=== PATIENT | female | born 1980 | race Caucasian/White ===

== ENCOUNTER 2018-04-01 19:29 | Observation (INO) ==
[2018-04-02 07:50] VITALS: BP 141/78; RESP 18; TEMP 97.8; O2SAT 95
--- NOTE | 2018-04-02 08:47 | P.HPCA ---
History of Present Illness Primary Care Physician: PCP Mimi Chief Complaint: Chest pain History of Present Illness: 38 year old female with history of type 2 diabetes, hypertension, and hyperlipidemia presents the emergency room for further evaluation of fatigue, nausea, dyspnea, and vague chest pain. Onset greater than 1 week. Location right anterior chest and substernal. Characterized as pressure, "as someone is pushing on my chest." Inspiration does not make discomfort worse. No particular movement or position makes pain better or worse except for laying on left side helps some. No radiation. Duration constant. Report poor appetite and after eating develops near immediate nausea. No vomiting or diarrhea. Report fever on 03/21 of 101 degrees which as not returned. No chills, cough, or injury. Denies similar chest discomfort in the past. Dyspnea constant as well, reports attempting to preform daily activities "ignoring the shortness of breath" but reports yesterday she became tired of feeling ill therefore came to ER. No polyuria or dysuria. Last menses end of February, denies chance of , history of tubal ligation and reports negative test completed in [facility]. Past cardiac testing None Social history Known type II diabetes (dx 2003), hypertension, and hyperlipidemia. Lifelong nonsmoker. No alcohol or recreational drug use. Works as cashier office. Reports remains active "all day" but does not have formal exercise regimen. Family history Noncontributory for early onset cardiovascular disease - Diagnosis (1) Atypical chest pain (2) Type 2 diabetes mellitus (3) Hypertension (4) Hyperlipidemia (5) Severe obesity (BMI >= 40) Review of Systems All other systems reviewed negative except as stated in HPI ON LICENSE OF [facility] - History History Provided By: Patient - Medical History Medical History: Medical History (Last Updated 04/02/18 @ 08:45 by MARIZA Cook) Asthma Carpal tunnel syndrome Gestational diabetes Hyperlipidemia Lumbar herniated disc Plantar fasciitis Severe obesity (BMI >= 40) Diabetes Hypertension - Surgical History Surgical History: Surgical History (Last Updated 04/02/18 @ 08:47 by MARIZA Cook) H/O section H/O tubal ligation History of carpal tunnel surgery of left wrist S/P cervical spinal fusion - Family History Family History: Family History (Last Updated 04/02/18 @ 09:12 by MARIZA Cook) Grandparent FH: CABG (coronary artery bypass surgery) Mother Leaky heart valve - Social History I have reviewed the patient's Social History: Yes - Tobacco History Second Hand Smoke Exposure: No Tobacco Use In Past 30 Days: No (4 years ago) Smoking Status: Never smoker - Alcohol History How Often Do You Have a Drink Containing Alcohol: Never - Substance Use History Substance History: No History of Abuse - Travel History Recent Travel in the [place] Within the Last 8 Weeks: No Recent Travel Out of the Country Within the Last 8 Weeks: No Medications and Allergies Active Medications: Active Medications Acetaminophen (Tylenol) 500 mg PO Q4H PRN PRN Reason: HEADACHE Ondansetron HCl (Zofran Inj) 4 mg IV.PUSH Q6H PRN PRN Reason: NAUSEA Sodium Chloride (Ns Flush) 2 ml IV.FLUSH BID TWAN Sodium Chloride (Ns Flush) 2 ml IV.FLUSH PRN PRN PRN Reason: FLUSH AFTER USING IV ACCESS Allergies Allergy/AdvReac Type Severity Reaction Status Date / Time ibuprofen Allergy Unknown swollen Verified 04/01/18 20:48 lips Home Medications Medication Instructions Recorded Confirmed Type albuterol sulfate 2 puff INHALATION Q4-6H PRN 04/01/18 04/02/18 History amlodipine 5 mg PO DAILY 04/01/18 04/02/18 History atorvastatin 80 mg PO QPM 04/01/18 04/02/18 History insulin degludec [Tresiba 15 unit SUBCUT DAILY 04/01/18 04/02/18 History FlexTouch U-100] losartan 100 mg PO DAILY 04/01/18 04/02/18 History metformin 1,000 mg PO BID 04/01/18 04/02/18 History sitagliptin [Januvia] 100 mg PO DAILY 04/01/18 04/02/18 History Exam Vital signs: Vital Signs 04/02/18 04:07 04/02/18 04:18 04/02/18 07:48 Temperature 97.6 F 97.8 F Pulse Rate 56 L 61 102 H Respiratory Rate 20 18 Blood Pressure 116/79 141/78 H Pulse Oximetry 98 95 Intake & Output 04/01/18 04/02/18 04/02/18 18:59 06:59 18:59 Weight 115.9 kg Other: Date of Last Bowel Movement 04/01/18 Weight On Admission 115.9 kg Narrative: GENERAL: Alert WN, WD, NAD, pleasant, morbidly obese, female HEAD: NC, AT EYES: Sclera clear, conjunctiva without injection, pupils equal and round ENT: Mucous membranes pink and moist NECK: Supple, no masses, trachea midline CV: RRR, without murmur, rub, gallop, no JVD, S1-S2 no S3-S4. No carotid bruits. Chest wall slight tender to palpation, chest pain not reproducible with palpation RESP: Clear lungs throughout bilateral, no crackles, wheeze, rhonchi, symmetrical chest rise, nonlabored, able to speak in full sentences ABD: Soft, NT, ND, no masses, positive bowel tones EXT: Pulses +2x4, no dependent edema MS: Normal tone x4 extremities, nontender, no obvious deformities, full range of motion NEURO: Motor strength 5/5, gait WNL PSYCH: A+O x3, pleasant affect, appropriate speech, mood, insight and judgment SKIN: Normal turgor, normal texture, no lesions, no rashes, even hair distribution, tattoos Results Intake and Output 04/01/18 04/02/18 04/02/18 22:59 06:59 14:59 Other: Date of Last Bowel Movement 04/01/18 Weight 115.9 kg Weight On Admission 115.9 kg EKG interpretations - EKG EKG results cardiology: sinus rhythm, normal axis, normal QRS (Lead III t wave inversion, AVF nonspecific t wave change) Caprini VTE Risk Assessment Caprini VTE Risk Assessment: No/Low Risk (score <= 1) Caprini Risk Assessment Model: Point Value = 1 Point Value = 2 Point Value = 3 Point Value = 5 Age 41-60 Minor surgery BMI > 25 kg/m2 Swollen legs Varicose veins or History of unexplained or recurrent spontaneous Oral contraceptives or hormone replacement Sepsis (< 1 month) Serious lung disease, including pneumonia (< 1 month) Abnormal pulmonary function Acute myocardial infarction Congestive heart failure (< 1 month) History of inflammatory bowel disease Medical patient at bed rest Age 61-74 Arthroscopic surgery Major open surgery (> 45 min) Laparoscopic surgery (> 45 min) Malignancy Confined to bed (> 72 hours) Immobilizing plaster cast Central venous access Age >= 75 History of VTE Family history of VTE Factor V Leiden Prothrombin 25152G Lupus anticoagulant Anticardiolipin antibodies Elevated serum homocysteine Heparin-induced thrombocytopenia Other congenital or acquired thrombophilia Stroke (< 1 month) Elective arthroplasty Hip, pelvis, or leg fracture Acute spinal cord injury (< 1 month) Prophylaxis Regimen: Total Risk Factor Score Risk Level Prophylaxis Regimen 0-1 Low Early ambulation 2 Moderate Order ONE of the following: *Sequential Compression Device (SCD) *Heparin 5000 units SQ BID 3-4 Higher Order ONE of the following medications: *Heparin 5000 units SQ TID *Enoxaparin/Lovenox 40 mg SQ daily (WT < 150 kg, CrCl > 30 mL/min) *Enoxaparin/Lovenox 30 mg SQ daily (WT < 150 kg, CrCl > 10-29 mL/min) *Enoxaparin/Lovenox 30 mg SQ BID (WT < 150 kg, CrCl > 30 mL/min) AND/OR *Sequential Compression Device (SCD) 5 or more Highest Order ONE of the following medications: *Heparin 5000 units SQ TID (Preferred with Epidurals) *Enoxaparin/Lovenox 40 mg SQ daily (WT < 150 kg, CrCl > 30 mL/min) *Enoxaparin/Lovenox 30 mg SQ daily (WT < 150 kg, CrCl > 10-29 mL/min) *Enoxaparin/Lovenox 30 mg SQ BID (WT < 150 kg, CrCl > 30 mL/min) AND *Sequential Compression Device (SCD) Assessment and Plan - Assessment (1) Atypical chest pain Code(s): R07.89 - Other chest pain Status: Acute Plan: Admitted to chest pain center. ACS rule out 3 sets of EKGs and cardiac enzymes. Chest discomfort atypical for cardiac etiology. Possible cardiac stress testing due to multiple risk factors. This will be determined after evaluation by Dr. Shabbir Peñaloza. Patient agreeable to plan of care and verbalized understanding. (2) Type 2 diabetes mellitus Code(s): E11.9 - Type 2 diabetes mellitus without complications Status: Chronic Plan: Continue Januvia and metformin. Hold home insulin at this time. Hypoglycemic protocol. Diabetic diet. Discussed importance of tight blood glucose control in length. Made aware of glucose and ketones in urine and importance of follow up with primary care provider. Continue losartan. (3) Hypertension Code(s): I10 - Essential (primary) hypertension Status: Chronic Plan: Continue amlodipine and losartan. Discussed following low-sodium diet, weight loss, and increasing daily activity. (4) Hyperlipidemia Code(s): E78.5 - Hyperlipidemia, unspecified Status: Chronic Plan: Continue atorvastatin. (5) Severe obesity (BMI >= 40) Code(s): E66.01 - Morbid (severe) obesity due to excess calories Status: Chronic Plan: Discussed dietary changes including but not limited to high vegetable intake, avoiding sugars, sugary drinks, and processed flours. Encouraged increasing daily activity. H&P: Quality - VTE Deep Vein Thrombosis/Pulmonary Embolism Present on Admission: No (2) Type 2 diabetes mellitus Qualifiers: Diabetes mellitus snf insulin use: unspecified snf insulin use status Diabetes mellitus complication status: with unspecified complications Qualified Code(s): E11.8 - Type 2 diabetes mellitus with unspecified complications (3) Hypertension Qualifiers: Hypertension type: unspecified Qualified Code(s): I10 - Essential (primary) hypertension (4) Hyperlipidemia Qualifiers: Hyperlipidemia type: unspecified Qualified Code(s): E78.5 - Hyperlipidemia, unspecified
[2018-04-02] MEDS ORDERED: amLODIPine 5 MG Tablet PO SCH (09:00)
[2018-04-02] MEDS: Acetaminophen 500 MG Tablet PO PRN ×2 (09:16→14:04)
[2018-04-02] MEDS ORDERED: Dextrose 50% in Water 50 ML Vial IV.PUSH PRN (10:42)
--- NOTE | 2018-04-02 10:58 | TR ---
Date Performed: 04/02/2018 Time Performed: 09:45:05 DOCTOR: Shabbir Peñaloza DRUG LIST: CLINICAL HISTORY: REASON FOR TEST: Chest pain REASON FOR ENDING: OBSERVATION: CONCLUSION: Alli protocol attempted, stopped sec to leg fatigue. Maximum EJ=473 Max HR Achieved =84.0% Maximum CT=731/84 Total Exercise Time=7:30. No reprod chest discomfort. Rare PVC. Upsloping st segments at peak. Artifact during testing. Normal bp response. Good exercise tolerance. Recovery que stionable minimial st depression inferior and in V6, otheriwise quiick and unremarkable, COMMENTS: Conclusion: Normal treadmill exercise. No evidence of ischemia.
[2018-04-02 15:51] VITALS: PULSE 63
== END 2018-04-02 14:39 | disposition home or self-care (01) ==
LOC: NEPHCDU 19:29 → NEDDLT 19:29
PROVIDERS: ADMIT Internal Medicine Interventional Cardiology; ATTEND Internal Medicine Interventional Cardiology
CPT/HCPCS: 71010; 71045; 80053; 81001; 83690; 84484; 84703; 85025; 85379; 87086; 93005; 93017; 96374; 99285; G0378; J2405